=== PATIENT | female | born 1970 | race Caucasian/White ===

== ENCOUNTER 2021-04-18 07:34 | Day surgery (SDC) | payer BC, OTHER ==
[2021-04-16 10:12] VITALS: BMI 26.6
[~2021-04-18 07:34] MED LIST: LACTATED RINGERS 1,000 ML IV SCH; LIDOCAINE 1% (10MG/ML) FOR IV START INTRADERMA PRN
[2021-04-18 07:53] VITALS: RESP 16; TEMP 97.3
[2021-04-18] MEDS ORDERED: PROPOFOL 10 MG/ML 20 ML VIAL IV ONE (08:43)
[2021-04-18] MEDS ORDERED: LIDOCAINE 1% INJ 10MG/ML (20 ML MDV) ONE (08:43)
--- NOTE | 2021-04-18 09:04 | P.PCN ---
Date of Procedure: 04/18/21 Procedure(s) Performed: BRIEF HISTORY: Patient is a 50-year-old pleasant s white femalecheduled for an elective colonoscopy as a part of evaluation of intermittent left lower quadrant abdominal pain and change in bowel habits. She had multiple episodes of acute sigmoid diverticulitis th over e last several years which was treated with antibiotics. 4 lately has been having intermittent lower abdominal pain that last 2 or 3 days and esophagus. PROCEDURE PERFORMED: Colonoscopy with snare polypectomy . PREOPERATIVE KELLEY DEMENTED EPISODES OF ACUTE SIGMOID DIVERTICULITIS AND LEFT LOWER QUADRANT ABDOMINAL PAIN IV sedation per Anesthesia. PROCEDURE: After informed consent was obtained, the patient, was brought into the endoscopy unit. IV sedation was administered by Anesthesia under continuous monitoring. Digital rectal examination was normal. Initially the Olympus CF-160 flexible video colonoscope was then inserted in the rectum, gradually advanced into the cecum without any difficulty. Careful examination was performed as the scope was gradually being withdrawn. Ileocecal valve and the appendiceal orifice were visualized and appeared normal. Prep was excellent. Mucosa of the cecum, ascending colon, appeared normal. In the proximal transverse colon there was a 5-6 mm sessile polyp removed by snare polypectomy. Rest of the transverse colon, descending colon, sigmoid colon, and rectum appeared normal. scattered left sided diverticulosis seen. Retroflexion was performed in the rectum and no lesions were seen. The patient tolerated the procedure well. IMPRESSION: Scattered sigmoid diverticulosis 5-6 cm transverse colon polyp status post polypectomy RECOMMENDATIONS: Findings of this examination were discussed with the patient as well as a family. She was advised to follow with the biopsy results. If the biopsy results and adenoma she can have a repeat colonoscopy in 5 years. In the meantime she'll be a high-fiber diet and take fiber supplements a regular basis and use dicyclomine as needed.
[2021-04-18 09:28] VITALS: BP 113/53; PULSE 71
== END 2021-04-18 10:11 | disposition home or self-care (01) ==
LOC: ORWHC2ENDO 07:34
PROVIDERS: ATTEND Internal Medicine Gastroenterology
DX: D12.3 Benign neoplasm of transverse colon (principal); K57.30 Diverticulosis of large intestine without perforation or abscess without bleeding; J45.909 Unspecified asthma, uncomplicated; F17.210 Nicotine dependence, cigarettes, uncomplicated; E07.9 Disorder of thyroid, unspecified; Z98.890 Other specified postprocedural states; Z79.890 Hormone replacement therapy; Z79.899 Other long term (current) drug therapy
CPT/HCPCS: 81025; 88305; 45385; J2001; J2704

== ENCOUNTER → 2021-04-18 | Outpatient (CLI) | payer OTHER ==
[2021-04-19 14:49] LABS: LDL Cholesterol,Calculated 183.5 mg/dL (0.0-131.0); VLDL Calculation 43.2 mg/dL (5.00-40.00)
[2021-04-20 21:39] LABS: African American GFR (CKD) 94.5 (60.0-200.0); Albumin 4.8 g/dL (3.8-4.9); Albumin/Globulin Ratio 2.13 (1.60-3.17); Anion Gap 21.8 mmol/L (4.00-12.00); BUN/Creat Ratio 10.45 Ratio (12.00-20.00); Blood Urea Nitrogen 8.6 mg/dL (9.0-27.0); Calcium 9.9 mg/dL (8.7-10.3); Carbon Dioxide 13.2 mmol/L (21.6-31.8); Chol/HDL Ratio 4.37 Ratio; Globulin 2.2 g/dL (1.6-3.3); HDL Cholesterol 67.3 mg/dL (40.00-60.00); Non-African American GFR(CKD) 81.6 (60.0-200.0); Potassium 4.4 mmol/L (3.5-5.5); T4, Free (Free Thyroxine) 1.41 ng/dL (0.800-1.800); Total Bilirubin 0.6 mg/dL (0.30-1.20)
== END | disposition home or self-care (01) ==
LOC: LABWHC1 07:21
PROVIDERS: ATTEND Nurse Practitioner
DX: E03.9 Hypothyroidism, unspecified (principal); E78.5 Hyperlipidemia, unspecified; R73.01 Impaired fasting glucose
CPT/HCPCS: 36415; 80053; 80061; 83036; 84439; 84443

== ENCOUNTER → 2021-07-19 | Outpatient (CLI) | payer OTHER ==
--- NOTE | 2021-07-19 15:46 | US ---
EXAMINATION TYPE: US pelvis complete transvag DATE OF EXAM: 07/19/2021 COMPARISON: NONE CLINICAL HISTORY: 51-year-old female N83.202 ovarian cyst. Intermittent pelvic discomfort TECHNIQUE: Transabdominal sonographic images of the pelvis were acquired. Transvaginal sonographic images were medically necessary to better assess the following anatomy: ovaries Date of LMP: 06/11/21 FINDINGS: EXAM MEASUREMENTS: Uterus: 8.6 x 2.8 x 4.1 cm Endometrial Stripe: 0.3 cm Right Ovary: 3.0 x 1.9 x 2.0 cm Left Ovary: 2.1 x 1.4 x 1.7 cm 1. Uterus: Anteverted and otherwise within normal limits 2. Endometrium: appears wnl 3. Right Ovary: Mildly complex cystic area = 1.8 x 2.2 x 1.7cm 4. Left Ovary: appears wnl 5. Bilateral Adnexa: wnl 6. Posterior cul-de-sac: wnl IMPRESSION: 1. Mildly complex, thinly septated cyst versus 2 adjacent cysts/follicles measuring up to 2.2 cm. Fol low-up in 6-8 weeks to reassess. 2. Otherwise, no specific abnormality seen.
== END | disposition home or self-care (01) ==
LOC: RADUSWWP 12:52
PROVIDERS: ATTEND Family Medicine
DX: N83.8 Other noninflammatory disorders of ovary, fallopian tube and broad ligament (principal)
CPT/HCPCS: 76830; 76856

== ENCOUNTER → 2021-11-13 | Outpatient (CLI) | payer OTHER ==
--- NOTE | 2021-11-13 22:38 | US ---
EXAMINATION TYPE: US pelvis complete transvag DATE OF EXAM: 11/13/2021 COMPARISON: Prior pelvic ultrasound July 19, 2021 CLINICAL HISTORY: N83.291 Other ovarian cyst, right side. Patient denies pelvic pain TECHNIQUE: TA US. Transabdominal sonographic images of the pelvis were acquired. Transvaginal sono graphic images were medically necessary to better assess the following anatomy: ovaries Date of LMP: July 2021 EXAM MEASUREMENTS: Uterus: 6.3 x 3.3 x 2.4 cm Endometrial Stripe: 0.3 cm Right Ovary: 2.0 x 1.4 x 1.5 cm Left Ovary: 2.7 x 2.5 x 1.4 cm 1. Uterus: Anteverted, small Nabothian Cyst seen in cervix = 0.3 x 0.3 x 0.3cm 2. Endometrium: thickness wnl 3. Right Ovary: small follicles seen in periphery 4. Left Ovary: complex cyst = 1.9 x 1.6 x 1.4cm 5. Bilateral Adnexa: wnl 6. Posterior cul-de-sac: wnl Anteverted uterus less well seen on current study. Stable appearance to the endometrial stripe. Incid ental 3 mm nabothian cyst. No free fluid. Ovaries symmetric and normal in size. Resolved cystic lesions in the right ovary. New cystic lesion l eft ovary has reticular pattern without internal flow favoring hemorrhagic cyst. O-RADS 2 lesion. IMPRESSION: As above.
== END | disposition home or self-care (01) ==
LOC: RADUSWWP 16:12
PROVIDERS: ATTEND Family Medicine
DX: N88.8 Other specified noninflammatory disorders of cervix uteri (principal); N83.292 Other ovarian cyst, left side
CPT/HCPCS: 76830; 76856

== ENCOUNTER → 2022-07-01 | Outpatient (CLI) | payer OTHER ==
[2022-07-01 15:05] LABS: Basophils # (A) 0.06 X 10*3/uL (0.00-0.10); Basophils % (A) 0.7 %; Eosinophils % (A) 2.5 %; HCT 42.9 % (37.2-46.3); HGB 14.4 g/dL (12.0-15.0); Immature Grans, Automated 0.5 %; Lymphocytes # (A) 2.66 X 10*3/uL (0.90-5.00); Lymphocytes % (A) 33.2 %; MCH 31.8 pg (27.0-32.0); MCHC 33.6 g/dL (32.0-37.0); MCV 94.7 fL (80.0-97.0); Monocytes # (A) 0.69 X 10*3/uL (0.20-1.00); Monocytes % (A) 8.6 %; NRBC Per 100 WBC 0 /100 WBCS (0.0-0.0); Neutrophils # (A) 4.36 X 10*3/uL (1.80-7.70); Neutrophils % (A) 54.5 %; Platelet Count 398 X 10*3/uL (140-440); RBC 4.53 X 10*6/uL (4.10-5.20); RDW 13.2 % (11.5-14.5); WBC 8.01 X 10*3/uL (4.50-10.00)
[2022-07-01 15:32] LABS: ALT 19 U/L (8-44); AST 16 U/L (13-35); African American GFR (CKD) 88.4 (60.0-200.0); Albumin 4.7 g/dL (3.8-4.9); Albumin/Globulin Ratio 1.98 (1.60-3.17); Alkaline Phosphatase 96 U/L (41-126); BUN/Creat Ratio 18.09 Ratio (12.00-20.00); Blood Urea Nitrogen 15.7 mg/dL (9.0-27.0); Calcium 10.1 mg/dL (8.7-10.3); Carbon Dioxide 22.3 mmol/L (20.0-27.5); Chloride 102 mmol/L (96-109); Globulin 2.4 g/dL (1.6-3.3); Glucose 104 mg/dL (70-110); LDL Cholesterol,Calculated 175.4 mg/dL (0.0-131.0); Non-African American GFR(CKD) 76.3 (60.0-200.0); Potassium 4.6 mmol/L (3.5-5.5); Sodium 140 mmol/L (135-145)
[2022-07-02 13:58] LABS: HCV Qualitative Result Not detected (Not detected); HCV Quant Log <1.08 (<1.08); HCV Quantitative Result <12 IU/mL (<12)
== END | disposition home or self-care (01) ==
LOC: LABWHC1 09:41
PROVIDERS: ATTEND Nurse Practitioner
DX: Z00.00 Encounter for general adult medical examination without abnormal findings (principal); Z11.59 Encounter for screening for other viral diseases; E03.9 Hypothyroidism, unspecified
CPT/HCPCS: 36415; 80053; 80061; 84439; 84443; 85025; 87522

== ENCOUNTER → 2022-12-18 | Outpatient (CLI) | payer OTHER ==
[2022-12-18 14:47] LABS: Basophils # (A) 0.05 X 10*3/uL (0.00-0.10); Basophils % (A) 0.7 %; Eosinophils # (A) 0.29 X 10*3/uL (0.04-0.35); Eosinophils % (A) 3.8 %; HCT 46.9 % (37.2-46.3); Immature Grans, Automated 0.7 %; Lymphocytes # (A) 2.28 X 10*3/uL (0.90-5.00); Lymphocytes % (A) 29.8 %; MCH 31.5 pg (27.0-32.0); MCV 98.5 fL (80.0-97.0); Mean Platelet Volume 9.5 fL (9.5-12.2); Monocytes # (A) 0.77 X 10*3/uL (0.20-1.00); Monocytes % (A) 10.1 %; NRBC Per 100 WBC 0 /100 WBCS (0.0-0.0); Neutrophils % (A) 54.9 %; Platelet Count 349 X 10*3/uL (140-440); RBC 4.76 X 10*6/uL (4.10-5.20); RDW 13.5 % (11.5-14.5); WBC 7.64 X 10*3/uL (4.50-10.00)
[2022-12-18 15:15] LABS: Anion Gap 13.5 mmol/L (10.00-18.00); Carbon Dioxide 22.5 mmol/L (20.0-27.5); Potassium 4.3 mmol/L (3.5-5.5)
== END | disposition home or self-care (01) ==
LOC: LABPAT 09:13
PROVIDERS: ATTEND Orthopaedic Surgery
DX: Z01.812 Encounter for preprocedural laboratory examination (principal); M75.42 Impingement syndrome of left shoulder
CPT/HCPCS: 36415; 80051; 85025; 93005

== ENCOUNTER 2023-01-02 09:46 | Day surgery (SDC) | payer OTHER ==
[2022-12-31 11:10] VITALS: BMI 28.8
--- NOTE | 2023-01-01 13:48 | HP ---
HISTORY AND PHYSICAL DATE OF SURGERY: 01/02/2023. HISTORY OF PRESENT ILLNESS: Sharmin Bal is a 52-year-old patient, seen with progressive left shoulder pain. We discussed the options for treatment and she elected to proceed with left shoulder arthroscopy. Consent regarding the procedure was obtained. PAST MEDICAL HISTORY: Hypothyroidism. PAST SURGICAL HISTORY: Noncontributory. DAILY MEDICATIONS: 1. [place] Thyroid. 2. Advair inhaler. ALLERGIES: None. SOCIAL HISTORY: She smokes cigarettes. PHYSICAL EVALUATION OF THE LEFT SHOULDER: Flexion is 150 degrees, abduction is 130 degrees, external rotation is 40 degrees with pain and weakness. Tenderness along the anterolateral acromion and rotator cuff insertion site. Impingement positive at 90 degrees. Drop-arm sign is positive. Cross- body adduction sign is positive. Distal neurovascular exam is intact. RADIOGRAPHS: Left shoulder radiographs revealed a type 2 acromion along with severe acromioclavicular joint osteoarthritis. MRI of the left shoulder revealed impingement as well as acromioclavicular joint osteoarthritis. IMPRESSION: 1. Left shoulder impingement with possible rotator cuff tear. 2. Left shoulder severe acromioclavicular joint osteoarthritis. 3. Hypothyroidism. PLAN: Left shoulder arthroscopy, subacromial decompression, possible arthroscopic rotator cuff repair, Radha procedure and debridement. MMODL / IJN: [id number] /
[~2023-01-02 09:46] MED LIST changes: +DEXAMETHASONE SOD PHOSPHATE 4 MG/ML 1 ML VIAL IV ONE; +HYDROmorphone 0.5 MG/0.5 ML SYRINGE IVP PRN; -LIDOCAINE 1% (10MG/ML) FOR IV START INTRADERMA PRN; +ONDANSETRON 4 MG/2 ML VIAL IVP ONE
[2023-01-02] MEDS ORDERED: MIDAZOLAM 2 MG/2 ML VIAL IVP ONE (10:30)
[2023-01-02] MEDS ORDERED: SUCCINYLCHOLINE CHLORIDE 200 MG/10 ML VIAL IV ONE (11:42)
[2023-01-02] MEDS ORDERED: BUPIVACAINE (PF) 0.5% 30 ML VIAL ONE (11:42)
[2023-01-02] MEDS ORDERED: fentaNYL (PF) 50 MCG/ML 2 ML AMP ONE (11:42)
[2023-01-02] MEDS ORDERED: ROPIVACAINE 5 MG/ML 30 ML VIAL ONE (11:42)
[2023-01-02] MEDS ORDERED: LIDOCAINE 2% INJ 20 MG/ML (2 ML VIAL) ONE (11:42)
[2023-01-02] MEDS ORDERED: PROPOFOL 10 MG/ML 20 ML VIAL IV ONE (11:42)
[2023-01-02 13:34] VITALS: TEMP 97.2
--- NOTE | 2023-01-02 13:36 | P.OP ---
Date of Procedure: 01/02/23 Preoperative Diagnosis: Left shoulder impingement Postoperative Diagnosis: 1. Left shoulder rotator cuff tear 2. Left shoulder biceps tendinitis with partial tearing 3. Left shoulder impingement 4. Left shoulder acromioclavicular joint osteoarthritis 5. 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 Left shoulder arthroscopic rotator cuff repair 2. Left shoulder arthroscopic biceps tenodesis 3. Left shoulder arthroscopic subacromial decompression 4. Left shoulder arthroscopic Radha procedure 5. Left shoulder arthroscopic chondroplasty humeral head Implants: 2Arthrex 4.75 swivel lock anchors Anesthesia: GETA, regional (Interscalene block) Surgeon: Johnathon De Santiago Extension Associate #1: Mark Pearson Estimated Blood Loss (ml): 11 Pathology: none sent Condition: stable Disposition: PACU Indications for Procedure: 52-year-old patient seen with progressive left shoulder pain. After having treatment options discussed, she elected to proceed with arthroscopy. Operative Findings: See description of procedure Description of Procedure: Patient underwent an interscalene block by department of anesthesia. The patient was then taken to the operative suite. The patient underwent a general anesthetic by the department of anesthesia. The patient was placed into a lateral position and secured. There was appropriate padding of the bony prominence. Left shoulder was then prepped and draped in normal sterile orthopedic fashion. We placed the extremity in 10 pounds of longitudinal traction. A posterior incision was now made for a posterior working portal site. The trocar and cannula were inserted into the glenohumeral joint. Arthroscopy was initiated. Spinal needle was now inserted anteriorly, to ascertain the anterior working portal site. An incision was now made in that area, a trocar was inserted followed by a probe. There were some small loose bodies measuring a couple of millimeters. I introduced a motorized shaver now able to extract this without difficulty. I noted an area of grade 3 chondromalacia in the central portion humeral head measuring about 2 cm with some peripheral osteochondral tearing. The superior labrum had some fraying but no substantial tear. The biceps tendon had some hyperemia and partial tearing consistent with tendinitis. I performed a chondroplasty of the humeral head. I now decided post with arthroscopic biceps tenodesis. I introduced a cannula from anterior portal site. I now created a loop intact technique to the biceps tendon released from the superior portion of the superior labrum. With the assistance of Mark THURMAN I punched the hole in the interval for insertion of an anchor in our biceps tenodesis. The suture was passed through the eyelet of Arthrex 4.75 swivel lock anchor. I placed the eyelet into our pre-punch hole. I held in position while Mark Pearson tensioned the suture and deployed the anchor with good fixation noted. The residual suture limb was clipped. We had an excellent biceps tenodesis. Instruments were now removed from glenohumeral joint. Utilizing the posterior working portal site, the trocar and cannula were inserted into the subacromial space. Arthroscopy initiated. I made an incision 2 fingerbreadths lateral to the acromion. I introduced my trocar followed by my ArthroCare ablator. I now began ablating thick subacromial bursal tissue, which exposed the undersurface of the anterior acromion. There was diminished subacromial space. There was a very prominent anterior acromion. A motorized bur was introduced and a subacromial decompression was performed. I also excised some osteophytes off the inferior aspect of the distal clavicle. The AC joint was visualized and noted to be fairly arthritic. The motorized bur was in troduced in the anterior portal site and a Radha procedure was performed without difficulty, decompressing the AC joint nicely. I turned my attention to the rotator cuff. There was significant partial tearing along the distal supraspinatus area. Upon probing the area noted a full-thickness perforation. I debrided the margins getting down to stable tendon tissue. The defect measured approximately 1 cm it was freely mobile over the footprint. I abraded the footprint with a motorized bur. I passed 2 everted mattress sutures through good bites of rotator cuff tendon. I punched the hole and the footprint area for insertion of an anchor. I passed the 4 limbs of suture through the eyelet an Arthrex 4.75 swivel lock anchor. I now placed the eyelet into our pre- punched hole. I held in position while Mark THURMAN tensioned all 4 suture limbs and deployed the anchor with good fixation noted. All residual suture limbs were now clipped. We had good compression of the tendon along the entire footprint. Instruments now removed from the portal sites. All portal sites were approximated with nylon suture. Sterile dressings were applied followed by a shoulder sling. Mark THURMAN assisted in this complex case. The patient was awakened, transferred to a bed, and taken to recovery in stable condition.
[2023-01-02 14:12] VITALS: RESP 18
[2023-01-02 14:32] VITALS: BP 131/56; PULSE 86
--- NOTE | 2023-01-02 20:28 | P.ANPRN ---
Procedure Note - Anesthesia - Nerve Block Performed Left Interscalene Single Time Out Performed: Yes Date of Procedure: 01/02/23 Procedure Start Time: 10:29 Procedure Stop Time: 10:35 Location of Patient: PreOp Indication: Acute Post-Operative Pain, Requested by Surgeon Sedation Type: Sedate with meaningful contact maintained Preparation: Sterile Prep Position: Supine Needle Types: Pajunk Needle Gauge: 21 Ultrasound used to visualize needle placement: Yes Ultrasound used to observe medication spread: Yes Blood Aspirated: No Pain Paresthesia on Injection Noted: No Resistance on Injection: Normal Image Stored and Saved: Yes Events: Uneventful and Well Tolerated (Ropivacaine 0.5% 20 mL plus dexamethasone 4mg)
== END 2023-01-02 14:59 | disposition home or self-care (01) ==
LOC: OR 09:46
PROVIDERS: ATTEND Orthopaedic Surgery
DX: M75.112 Incomplete rotator cuff tear or rupture of left shoulder, not specified as traumatic (principal); S46.212A Strain of muscle, fascia and tendon of other parts of biceps, left arm, initial encounter; M19.012 Primary osteoarthritis, left shoulder; M75.42 Impingement syndrome of left shoulder; S43.432A Superior glenoid labrum lesion of left shoulder, initial encounter; M24.112 Other articular cartilage disorders, left shoulder; M94.212 Chondromalacia, left shoulder; M25.712 Osteophyte, left shoulder; M24.012 Loose body in left shoulder; X58.XXXA Exposure to other specified factors, initial encounter; G89.18 Other acute postprocedural pain; E03.9 Hypothyroidism, unspecified; J45.909 Unspecified asthma, uncomplicated; F17.210 Nicotine dependence, cigarettes, uncomplicated; Z79.890 Hormone replacement therapy; Z79.51 Long term (current) use of inhaled steroids
CPT/HCPCS: 29827; 29828; 29824; 29826; 64415; C1713 ×3; C1894; J2250; J0330; J1100; J0690; J2405; J3010; J2795; J2704; J2001

== ENCOUNTER → 2023-05-30 | Outpatient (CLI) | payer OTHER ==
[2023-05-30 16:22] LABS: T4, Free (Free Thyroxine) 1.22 ng/dL (0.80-1.80)
== END | disposition home or self-care (01) ==
LOC: LABWHC1 09:51
DX: E03.9 Hypothyroidism, unspecified (principal)
CPT/HCPCS: 36415; 84439; 84443

== ENCOUNTER → 2023-08-01 | Outpatient (CLI) | payer OTHER ==
[2023-08-01 14:53] LABS: ALT 28 U/L (8-44); AST 20 U/L (13-35); Albumin 4.5 g/dL (3.8-4.9); Albumin/Globulin Ratio 1.96 Ratio (1.60-3.17); Alkaline Phosphatase 82 U/L (41-126); BUN/Creat Ratio 20.88 Ratio (12.00-20.00); Blood Urea Nitrogen 16.7 mg/dL (9.0-27.0); Calcium 9.7 mg/dL (8.7-10.3); Chloride 105 mmol/L (96-109); Chol/HDL Ratio 5.07 Ratio; Globulin 2.3 g/dL (1.6-3.3); Glucose 107 mg/dL (70-110); LDL Cholesterol,Calculated 173.2 mg/dL (0.0-131.0); Potassium 4.1 mmol/L (3.5-5.5); Sodium 139 mmol/L (135-145); Total Bilirubin 0.3 mg/dL (0.3-1.2); Total Protein 6.8 g/dL (6.2-8.2)
== END | disposition home or self-care (01) ==
LOC: LABWHC1 09:24
PROVIDERS: ATTEND Family Medicine
DX: E78.5 Hyperlipidemia, unspecified (principal)
CPT/HCPCS: 36415; 80053; 80061

== ENCOUNTER → 2024-09-15 | Outpatient (CLI) | payer OTHER ==
[2024-09-15 10:55] LABS: Basophils # (A) 0.07 X 10*3/uL (0.00-0.10); Basophils % (A) 0.9 %; Eosinophils # (A) 0.32 X 10*3/uL (0.04-0.35); HCT 42.4 % (37.2-46.3); HGB 13.6 g/dL (12.0-15.0); Lymphocytes # (A) 3.26 X 10*3/uL (0.90-5.00); Lymphocytes % (A) 40.6 %; MCH 31.6 pg (27.0-32.0); MCHC 32.1 g/dL (32.0-37.0); MCV 98.6 FL (80.0-97.0); Mean Platelet Volume 9.3 FL (9.5-12.2); Monocytes # (A) 0.83 X 10*3/uL (0.20-1.00); Monocytes % (A) 10.3 %; NRBC Per 100 WBC 0 X 10*3/uL (0.00-0.01); Neutrophils # (A) 3.52 X 10*3/uL (1.80-7.70); Platelet Count 336 X 10*3/uL (140-440); RDW 13.2 % (11.5-14.5); WBC 8.02 X 10*3/uL (4.50-10.00)
[2024-09-15 15:26] LABS: Chol/HDL Ratio 5.39 Ratio
[2024-09-15 15:27] LABS: ALT 24 U/L (8-44); AST 23 U/L (13-35); Albumin 4.4 g/dL (3.8-4.9); Alkaline Phosphatase 78 U/L (41-126); BUN/Creat Ratio 20.86 Ratio (12.00-20.00); Blood Urea Nitrogen 14.6 mg/dL (9.0-27.0); Calcium 9.4 mg/dL (8.7-10.3); Carbon Dioxide 22.4 mmol/L (21.6-31.8); Chloride 106 mmol/L (96-109); Glucose 103 mg/dL (70-110); LDL Cholesterol,Calculated 200.2 mg/dL (0.0-131.0); Potassium 4.1 mmol/L (3.5-5.5); Sodium 142 mmol/L (135-145); T4, Free (Free Thyroxine) 1.26 ng/dL (0.80-1.80); Total Bilirubin <0.2 mg/dL (0.3-1.2); Total Protein 6.4 g/dL (6.2-8.2)
--- NOTE | 2024-09-22 14:37 | MM ---
Reason for Exam: Screening (asymptomatic). Last mammogram was performed 1 year(s) and 4 month(s) ago. Patient History: Menarche at age 12. Patient has no children. Postmenopausal. Hormonal Contraceptives for 10 years from age 21 until age 31. 09/25/2009, Benign Core Biopsy on the right side. Risk Values: Martina 5 year model risk: 1.5%. NCI Lifetime model risk: 9.5%. Prior Study Comparison: 09/25/2009 Right Diagnostic Mammogram, [facility]. 12/06/2010 Bilateral Diagnostic Mammogram, [facility]. 12/01/2013 Bilateral Screening Mammogram, [facility]. 05/16/2022 Bilateral Screening Mammogram, [facility]. 05/20/2023 Bilateral Screening Mammogram, [facility]. Tissue Density: The breasts are heterogeneously dense, which may obscure small masses. Findings: Analyzed By CAD. Bilateral areas of asymmetric density appear unchanged. Microclip anterior right breast from prior biopsy. A few benign oil cyst calcifications bilaterally. There is no suspicious group of microcalcifications or new suspicious mass in either breast. Overall Assessment: Benign, BI-RAD 2 Management: Screening Mammogram of both breasts in 1 year. Patient should continue monthly self-breast exams. A clinical breast exam by your physician is recommended on an annual basis. This exam should not preclude additional follow-up of suspicious palpable abnormalities. Note on Martina scores and lifetime risk: 1. A Martina score greater than 3% is considered moderate risk. If this is the case, consider specialist referral to assess eligibility for a risk reducing agent. 2. If overall lifetime risk for the development of breast cancer is 20% or higher, the patient may qualify for future screening with alternating mammogram and breast MRI. [facility], , 09/22/2024 2:34 PM. Electronically signed and approved by: Max Rg M.D. Radiologist
== END | disposition home or self-care (01) ==
LOC: RADMAMWWP 07:19
PROVIDERS: ATTEND Family Medicine
DX: Z12.31 Encounter for screening mammogram for malignant neoplasm of breast (principal); Z00.01 Encounter for general adult medical examination with abnormal findings; R92.333 Mammographic heterogeneous density, bilateral breasts; Z78.0 Asymptomatic menopausal state; Z92.0 Personal history of contraception
CPT/HCPCS: 77067; 80053; 80061; 84439; 84443; 85025